=== PATIENT | female | born 1955 | race Caucasian/White ===

== ENCOUNTER 2021-08-29 13:31 | Emergency (ER) | payer OTHER ==
--- NOTE | 2021-08-29 14:09 | XRAY Report ---
PROCEDURE: Chest 1 View X-Ray INDICATIONS: Chest pain TECHNIQUE: One view of the chest was acquired. COMPARISON: None FINDINGS: Surgical changes and devices: None. Lungs and pleura: No pleural effusions or pneumothorax. Lungs are clear. Mediastinum: Mediastinal contours appear normal. Heart size is normal. Bones and chest wall: No suspicious bony lesions. Overlying soft tissues appear unremarkable. IMPRESSION: No acute cardiopulmonary disease process. Reviewed by: Reyna Polk MD, PhD on 08/29/2021 2:07 PM [facility] Approved by: Reyna Polk MD, PhD on 08/29/2021 2:07 PM [facility] Station ID: [id number]
--- NOTE | 2021-08-29 14:38 | ED Physician Documentation ---
PD HPI CHEST PAIN - Stated complaint Stated Complaint: RIGHT ARM & CHEST PX - Chief complaint Chief Complaint: Cardiac - History obtained from History obtained from: Patient - Additional information Additional information: 66-year-old woman with history of remote right-sided lumpectomy and lymph node dissection has had 2 weeks of right upper chest wall pressure radiating to the axilla associated with shortness of breath and fatigue starting after getting her Covid booster. She did get the Covid booster on the other side. No fevers. Pain is constant and nonexertional. No recent travel, pedal edema or calf pain. Review of Systems Constitutional: denies: Fever, Chills Throat: denies: Dental pain / toothache, Sore throat Cardiac: denies: Palpitations, Pedal edema, Calf pain Respiratory: denies: Hemoptysis, Wheezing PD PAST MEDICAL HISTORY - Allergies Allergies/Adverse Reactions: Allergies Allergy/AdvReac Type Severity Reaction Status Date / Time Fish Containing Products Allergy Hives Verified 08/29/21 13:41 Sulfa (Sulfonamide Allergy Anaphylaxis Verified 08/29/21 13:41 Antibiotics) PD ED PE NORMAL - Vitals Vital signs reviewed: Yes - General General: Alert and oriented X 3, No acute distress - HEENT HEENT: Pharynx benign - Neck Neck: Supple, no meningeal sign, No bony TTP - Cardiac Cardiac: RRR, No murmur - Respiratory Respiratory: No respiratory distress, Clear bilaterally - Abdomen Abdomen: Non tender - Extremities Extremities: No edema, No calf tenderness / cord - Neuro Neuro: Alert and oriented X 3, Normal speech Results - Vitals Vitals: Vital Signs - 24 hr 08/29/21 08/29/21 13:36 15:20 Temperature 36.0 C L Heart Rate 69 61 Respiratory 20 16 Rate Blood Pressure 148/91 H 113/72 O2 Saturation 99 99 Oxygen O2 Source Room air - EKG (time done) 1346 Rate: Rate (enter#) (65) Rhythm: NSR [place]: Normal Intervals: Normal CT QRS: Normal Ischemia: Normal ST segments Computer interpretation: Agree with computer - Labs Labs: Laboratory Tests 08/29/21 08/29/21 08/29/21 14:40 14:40 14:40 WBC 6.7 RBC 4.72 Hgb 14.8 Hct 44.5 MCV 94.3 MCH 31.4 H MCHC 33.3 RDW 12.1 Plt Count 261 MPV 10.9 H Neut # (Auto) 3.8 Lymph # (Auto) 2.0 [place] # (Auto) 0.6 Eos # (Auto) 0.3 Baso # (Auto) 0.0 Absolute Nucleated RBC 0.00 Nucleated RBC % 0.0 Sodium 139 Potassium 4.2 Chloride 101 Carbon Dioxide 26 Anion Gap 12.0 BUN 19 Creatinine 1.0 Estimated GFR (MDRD) 56 L Glucose 113 H Calcium 9.6 Total Bilirubin 0.9 AST 21 ALT 19 Alkaline Phosphatase 81 Troponin I High Sens 3.2 Total Protein 7.5 Albumin 4.4 Globulin 3.1 Albumin/Globulin Ratio 1.4 Lipase 33 PD MEDICAL DECISION MAKING - ED course ED course: 66-year-old woman with 2 weeks of atypical chest pain that is nonexertional without evidence of ischemia on EKG or troponin. Nothing in the history or physical to suggest PE. Her work-up was otherwise negative. Departure - Departure Disposition: 01 Home, Self Care Clinical Impression: Chest wall pain Condition: Good Record reviewed to determine appropriate education?: Yes Instructions: ED Chest Pain NonCardiac Comments: Call your doctor to arrange a follow-up appointment, make the next available appointment. In the interim, return anytime if worse or if new symptoms develop. You have a Covid test pending. You need to self quarantine until the result is done and negative. Do not leave your house. Do not get near anybody. The results should be done in 48 to 72 hours. We will call with a positive result, the fastest way to get a negative result for confirmation though is to go to the hospital website at [email or web address], click on the [email or web address] tab and sign up for the patient portal. If any friends or family get sick and would like to have a Covid test done, but do not have signs or symptoms that would necessitate being hospitalized, there are multiple local options for Covid testing. [facility] keeps an updated list of testing and vaccination options at: [email or web address]. Discharge Date/Time: 08/29/21 15:21
[2021-08-29 14:53] LABS: BASOPHILS % (AUTO) 0.6 %; EOSINOPHILS # (AUTO) 0.3 10^3/uL (0.0-0.7); EOSINOPHILS % (AUTO) 3.9 %; HCT - HEMATOCRIT 44.5 % (37.0-47.0); HGB - HEMOGLOBIN 14.8 g/dL (12.0-16.0); LYMPHOCYTES % (AUTO) 29.9 %; MEAN CORPUSCULAR HEMOGLOBIN 31.4 pg (27.0-31.0); MEAN CORPUSCULAR HGB CONC 33.3 g/dL (32.0-36.0); MEAN CORPUSCULAR VOLUME 94.3 fL (81.0-99.0); MEAN PLATELET VOLUME 10.9 fL (7.9-10.8); MONOCYTES # (AUTO) 0.6 10^3/uL (0.0-1.0); MONOCYTES % (AUTO) 8.5 %; NEUTROPHILS # (AUTO) 3.8 10^3/uL (1.5-6.6); NEUTROPHILS % (AUTO) 56.8 %; PLT - PLATELET COUNT 261 10^3/uL (130-450); RED BLOOD COUNT 4.72 10^6/uL (4.20-5.40); RED CELL DISTRIBUTION WIDTH 12.1 % (12.0-15.0); WHITE BLOOD COUNT 6.7 x10^3/uL (4.8-10.8)
[2021-08-29 15:04] LABS: ALBUMIN 4.4 g/dL (3.2-5.5); ALBUMIN/GLOBULIN RATIO 1.4 (1.0-2.2); BILIRUBIN,TOTAL 0.9 mg/dL (0.2-1.0); CALCIUM 9.6 mg/dL (8.5-10.3); POTASSIUM 4.2 mmol/L (3.5-5.0); TOTAL PROTEIN 7.5 g/dL (6.7-8.2)
[2021-08-29 15:21] VITALS: BP 113/72
== END 2021-08-29 15:21 | disposition home or self-care (01) ==
LOC: ED 13:31
DX: R07.89 Other chest pain (principal); Z20.822 Contact with and (suspected) exposure to COVID-19
CPT/HCPCS: 36415; 80053; 83690; 84484; 85025; 93005; 99283; 99284